=== PATIENT | female | born 1955 | race Caucasian/White ===

== ENCOUNTER → 2025-04-14 | Outpatient (CLI) | payer OTHER ==
[~2025-04-14] MED LIST: ADDERALL XR20 MG PO; CIPROFLOXACIN500 MG PO; CYCLOBENZAPRINE10 MG PO; LIDEX0.05% T; MOTRIN800 MG PO; NKHM; NORVASC2.5 MG PO; PERCOCET 325 MG1 TA8 PO; PREDNICOT20 MG PO; PRILOSEC20 M2 PO; PYRIDIUM200 MG PO; ROBAXIN500 MG PO; VICODIN 5/500 505 MG PO
[2025-04-14 12:58] LABS: ACT PARTIAL THROMBO TIME 28.9 SECONDS (20.0-32.1)
== END | disposition home or self-care (01) ==
LOC: LAB 12:15
PROVIDERS: ATTEND Nurse Practitioner Family
DX: Z01.818 Encounter for other preprocedural examination (principal); I51.7 Cardiomegaly; D50.9 Iron deficiency anemia, unspecified